=== PATIENT | male | born 2000 | race Caucasian/White ===

== ENCOUNTER 2019-12-11 17:54 | Inpatient (IN) ==
[2019-12-11 19:08] LABS: Bilirubin,Urine Small (Negative); Blood,Urine Negative (Negative); Clarity,Urine Clear (Clear); Color,Urine Dark Yellow (Yellow); Glucose,Urine (UA) Normal (Normal); Ketones,Urine Trace mg/dL (Negative); Leukocyte Esterase,Urine Negative (Negative); Nitrite,Urine Negative (Negative); PH,Urine 6.5 pH Units (5.0-8.0); Protein,Urine Negative (Neg-Trace); Specific Gravity,Urine > 1.030 (1.010-1.025); Urobilinogen,Urine Normal (Normal)
[2019-12-11 19:14] LABS: Basophils % 0.3 %; Eosinophils # 0.1 K/mcL (0.0-0.6); Eosinophils % 1.4 %; Hematocrit 49.9 % (37.5-50.1); Hemoglobin 17.7 g/dL (12.9-16.9); Immature Granulocytes % 0.2 % (0-4); Lymphocytes # 1.9 K/mcL (0.6-4.6); Lymphocytes % 19.8 %; Mean Corpuscular HGB Conc 35.5 g/dL (31.6-35.5); Mean Corpuscular Volume 84.6 fL (83.0-100.0); Mean Platelet Volume 12.2 fL (9.4-12.4); Monocytes # 0.8 K/mcL (0.0-1.3); Monocytes % 8.2 %; Neutrophils # 6.7 K/mcL (1.6-8.9); Platelet Count 201 K/mcL (140-400); Red Cell Distribution Width 12.2 % (11.5-14.5); Segmented Neutrophils % 70.1 %; White Blood Count 9.5 K/mcL (4.3-11.1)
[2019-12-11 19:16] LABS: Amphetamine Screen,Urine Negative ng/mL (Cutoff=1000); Barbiturate Screen,Urine Negative ng/mL (Cutoff=200); Benzodiazepines Screen,Urine Negative ng/mL (Cutoff=200); Cannabinoid Screen,Urine Negative ng/mL (Cutoff = 50); Cocaine Screen,Urine Negative ng/mL (Cutoff= 300); Opiate Screen,Urine Negative ng/mL (Cutoff=300); Phencyclidine Screen,Urine Negative ng/mL (Cutoff=25)
[2019-12-11 19:26] LABS: BUN/Creatinine Ratio 12 (6-26); Blood Urea Nitrogen 12 mg/dL (6-20); Carbon Dioxide 27 mEq/L (23-29); Chloride 103 mEq/L (98-107); Ethanol < 10 mg/dL (Less than 10); Glucose 112 mg/dL (70-105); Osmolality,Calculated 295 (280-300); Potassium 3.6 mEq/L (3.5-5.1); Sodium 142 mEq/L (136-145); eGFR For African Americans > 60 (> 60); eGFR For Non-African Americans > 60 (> 60)
[2019-12-11] MEDS ORDERED: Nicotine 14 MG PATCH.TD24 TD SCH (19:32)
[2019-12-11] MEDS ORDERED: Mag Hydrox/Al Hydrox/Simeth 30 ML UDC PO PRN (20:49)
[2019-12-11] MEDS ORDERED: Haloperidol Lactate 5 MG/ML VIAL IM PRN (20:49)
[2019-12-11] MEDS ORDERED: MOM Conc 10 ML UD.LIQ PO PRN (20:49)
[2019-12-11] MEDS ORDERED: *HR* LORazepam 2 MG/ML VIAL IM PRN (20:49)
[2019-12-11] MEDS ORDERED: Acetaminophen 325 MG TABLET PO PRN (20:49)
[2019-12-11] MEDS ORDERED: *HR* LORazepam 1 MG TABLET PO PRN (20:49)
[2019-12-11] MEDS ORDERED: haloperidoL 5 MG TABLET PO PRN (20:49)
[2019-12-11] MEDS: traZODone 50 MG TABLET PO PRN (21:53)
[2019-12-11] MEDS: hydrOXYzine pamoate 25 MG CAPSULE PO PRN (21:53)
[2019-12-12] MEDS ORDERED: Nicotine 14 MG PATCH.TD24 TD SCH (08:10)
[2019-12-12] MEDS: hydrOXYzine pamoate 25 MG CAPSULE PO PRN ×2 (11:07→18:19)
[2019-12-12] MEDS: traZODone 50 MG TABLET PO PRN (20:51)
[2019-12-13 08:27] VITALS: BP 155/84
== END 2019-12-13 09:20 | disposition home or self-care (01) | DRG 882 ==
LOC: 1ANU 17:54 → EMEROOARM 17:54 → 1ANU 21:27
PROVIDERS: ADMIT Psychiatry & Neurology Psychiatry; ATTEND Psychiatry & Neurology Psychiatry